=== PATIENT | female | born 1970 | race Caucasian/White ===

== ENCOUNTER 2018-06-04 10:21 | Emergency (ER) | payer MEDICAID ==
[2018-06-04 11:23] LABS: HEMATOCRIT 26.7 % (41.0-60); HEMOGLOBIN 8.3 gm/dL (12-16); MEAN CELL VOLUME 62.8 fl (81-100); MEAN CORPUSCULAR HEMOGLOBIN 19.5 pg (27.0-31.0); MEAN PLATELET VOLUME 8.6 fl; PLATELET COUNT 397 Th/cmm (150-400); RED BLOOD COUNT 4.24 Mil/cmm (3.80-5.10); RED CELL DISTRIBUTION WIDTH 21.1 % (11.5-20.0); WHITE BLOOD COUNT 5.7 Th/cmm (4.8-10.8)
--- NOTE | 2018-06-04 11:26 | ED Physician Chart ---
ED Chief Complaint/HPI - Patient Information Date Seen:: 06/04/18 Time Seen:: 11:00 Chief Complaint:: anemia History of Present Illness:: this is a 47 yo female who is concerned about her anemia and weakness. she was sent here by her pmd to check her blood count. Vitals:: Vital Signs - 8 hr 06/04/18 10:51 Temp 97.9 F HR 97 RR 18 BP 117/73 O2 Sat % 100 Historian:: Patient Review:: Nurse's Note Reviewed ED Review of Systems - Review of Systems General/Constitutional: No fever, No chills, No weight loss, Weakness, No diaphoresis, No edema, No loss of appetite Skin: No skin lesions, No rash, No bruising Head: No headache, No light-headedness Eyes: No loss of vision, No pain, No diplopia ENT: No earache, No nasal drainage, No sore throat, No tinnitus Neck: No neck pain, No swelling, No thyromegaly, No stiffness, No mass noted Cardio Vascular: No chest pain, No palpitations, No PND, No orthopnea, No edema Pulmonary: No SOB, No cough, No sputum, No wheezing GI: No nausea, No vomiting, No diarrhea, No pain, No melena, No hematochezia, No constipation, No hematemesis G/U: No dysuria, No frequency, No hematuria Musculoskeletal: No bone or joint pain, No back pain, No muscle pain Endocrine: No polyuria, No polydipsia Psychiatric: No prior psych history, No depression, No anxiety, No suicidal ideation Hematopoietic: No bruising, No lymphadenopathy Allergic/Immuno: No urticaria, No angioedema Neurological: No syncope, No focal symptoms, No weakness, No paresthesia, No headache, No seizure, No dizziness, No confusion, No vertigo ED Past Medical History - Past Medical History Obtainable: Yes Past Medical History: Asthma/COPD Family History: None Social History: Non Smoker, No Alcohol, No Drug Use Surgical History: None Psychiatricy History: None Medication: Reviewed Family Medical History - Family Member Mother History Unknown: Yes ED Physical Exam - Physical Examination General/Constitutional: Awake, Well-developed, well-nourished, Alert, No distress, GCS 15, Non-toxic appearing, Ambulatory Head: Atraumatic Eyes: Lids, conjuctiva normal, PERRL, EOMI Skin: Nl inspection, No rash, No skin lesions, No ecchymosis, Well hydrated, No lymphadenopathy ENMT: External ears, nose nl, Nasal exam nl, Lips, teeth, gums nl Neck: Nontender, Full ROM w/o pain, No JVD, No nuchal rigidity, No bruit, No mass, No stridor Respiratory: Nl effort/Exclusion, Clear to Auscultation, No Wheeze/Rhonchi/Rales Cardio Vascular: RRR, No murmur, gallop, rubs, NL S1 S2 GI: No tenderness/rebounding/guarding, No organomegaly, No hernia, Normal BS's, Nondistended, No mass/bruits, No McBurney tenderness : No CVA tenderness Extremities: No tenderness or effusion, Full ROM, normal strength in all extremities, No edema, Normal digits & nails Neuro/Psych: Alert/oriented, DTR's symmetric, Normal sensory exam, Normal motor strength, Judgement/insight normal, Mood normal, Normal gait, No focal deficits Misc: Normal back, No paraspinal tenderness ED Assessment - Assessment General Assessment: anemia ED Septic Shock - . Is Septic Shock (SBP<90, OR Lactate>4 mmol\L) present?: No - <6hrs of presentation: Vital Signs: Vital Signs - 8 hr 06/04/18 10:51 Temp 97.9 F HR 97 RR 18 BP 117/73 O2 Sat % 100 ED Reassessment (Disposition) - Reassessment Reassessment Condition:: Unchanged - Diagnosis Diagnosis:: anemia - Aftercare/Follow up Instructions Aftercare/Follow-Up Instructions:: Counseled pt regarding lab results/diagnosis & need follow up, Refer to Discharge Instructions, Counseled pt & family regarding lab results/diagnosis & need follow up - Patient Disposition Discharge/Transfer:: Home Condition at Disposition:: Unchanged
[2018-06-04 11:32] LABS: INR 0.9 (0.5-1.4); PROTHROMBIN TIME (TEST) 9.4 SECONDS (9.5-11.5)
[2018-06-04 11:33] LABS: ALB/GLOB RATIO 1.2 (1.0-1.8); ALKALINE PHOSPHATASE 50 U/L (34-104); ANION GAP 10.9 (7.0-16.0); BILIRUBIN,TOTAL 1.2 mg/dL (0.3-1.0); BUN - UREA NITROGEN 10 mg/dL (7-25); CALCIUM SERUM 9.7 mg/dL (8.6-10.3); CARBON DIOXIDE 28.1 mEq/L (21.0-31.0); CHLORIDE 102 mEq/L (98-107); CREATININE - SERUM 0.8 mg/dL (0.6-1.2); GFR AFRICAN-AMERICAN > 60.0 ml/min (>90); GFR NON AFRICAN-AMERICAN > 60.0 ml/min; GLUCOSE 134 mg/dL (70-105); SGOT 21 U/L (13-39); SGPT/ALT 16 U/L (7-52); SODIUM SERUM 137 mEq/L (136-145); TOTAL PROTEIN,SERUM 7.3 gm/dL (6.0-8.3)
[2018-06-04 11:45] LABS: ANISOCYTOSIS 1+; BAND NEUTROPHILE 2 % (0-10); BASOPHIL 0 % (0-3); EOSINOPHIL 0 % (0-5); LYMPHOCYTE 22 % (20-50); MONOCYTE 9 % (2-10); NEUTROPHILS 67 % (40-80)
[2018-06-07 07:50] LABS: TIBC (LC) SEE REF. LAB REPORT
[2018-06-07 07:51] LABS: IRON LC SEE REF.LAB REPORT
[2018-06-07 07:52] LABS: UIBC SEE REF.LAB REPORT
== END 2018-06-04 12:46 | disposition home or self-care (01) ==
LOC: ER 10:21
DX: D64.9 Anemia, unspecified (principal); J44.9 Chronic obstructive pulmonary disease, unspecified
CPT/HCPCS: 36415-UA; 80053-TC; 83540-90; 83550-90; 85007-TC; 85025-TC; 85610-TC; 85730-TC; Z7502